=== PATIENT | male | born 2000 | race Caucasian/White ===

== ENCOUNTER 2019-03-29 08:43 | Emergency (ER) | payer OTHER ==
[2019-03-29] MEDS ORDERED: LORazepam 2 MG/ML INJ IVP ONE (08:50)
[2019-03-29] MEDS ORDERED: KETOROLAC 30 MG/1 ML SDV IVP ONE (08:50)
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
[2019-03-29] MEDS ORDERED: CALCIUM CARBONATE 500 MG CHEWABLE TAB PO ONE (09:33)
[2019-03-29] MEDS ORDERED: CALCIUM CARBONATE 500 MG CHEWABLE TAB PO PRN (09:34)
[2019-03-29 09:39] VITALS: BP 146/72
== END 2019-03-29 10:09 | disposition home or self-care (01) ==
DX: S16.1XXA Strain of muscle, fascia and tendon at neck level, initial encounter (principal); V79.3XXA Bus occupant (driver) (passenger) injured in unspecified nontraffic accident, initial encounter; Y92.410 Unspecified street and highway as the place of occurrence of the external cause
CPT/HCPCS: 96374; J1885; J2060